=== PATIENT | female | born 1975 | race Caucasian/White ===

== ENCOUNTER → 2016-11-09 | Outpatient (CLI) | payer OTHER ==
--- NOTE | 2016-11-09 13:48 | KCIC ---
Ultrasound Pelvis Indication:Reason For Study Reason: LLQ PAIN X 1 DAY / Spl. Instructions: / History: Technique: Multiple real-time grayscale images were obtained over the pelvis transabdominally and transvaginally. Color Doppler imaging was utilized. Findings: The uterus is normal in size measuring 8.1 x 3.8 x 5.2 cm. The endometrium is also within normal limits measuring 4 mm in thickness. Small nabothian cyst is seen measuring 9 millimeters. The right ovary measures 3.1 x 1.9 x 2.2cm. No abnormal right ovarian lesions are identified. Normal blood flow is identified. The left ovary measures 2.9 x 1.8 x 2.9cm. No abnormal left ovarian lesions are identified. Normal blood flow is identified. No pelvic free fluid is identified. Impression: Pelvic sonogram within normal limits. Electronically signed by: Rashel Greco (November 09, 2016 13:46:35)
== END | disposition home or self-care (01) ==
LOC: KCIC US 12:21
PROVIDERS: ATTEND Emergency Medicine
DX: R10.32 Left lower quadrant pain (principal)
CPT/HCPCS: 76830; 76856